=== PATIENT | female | born 1930 | race Caucasian/White ===

== ENCOUNTER 2017-01-03 16:37 | Inpatient (IN) | payer OTHER ==
[~2017-01-03] VITALS: Ht 152.4 cm; Wt 56.7 kg
[~2017-01-03 16:37] MED LIST: ALBUTEROL HHN; AMLO5TAB4; ASPI81TA2 PO; LIP20 PO
[2017-01-03 16:49] VITALS: BP_SYST 130
[2017-01-03] MEDS ORDERED: VANCOMYCIN HCL 1,000 MG in NS 250 ML IV ONE (18:30)
[2017-01-03] MEDS ORDERED: CEFAZOLIN 1 GM IVPB PREMIX 50 ML IV ONE (18:30)
[2017-01-03] MEDS ORDERED: VANCOMYCIN HCL 1000 MG/VIAL IV ONE ×2 (18:51→18:53)
[2017-01-03] MEDS ORDERED: FLUT1DIS3 INH (19:23)
[2017-01-03] MEDS ORDERED: ALBMDI INH (19:24)
[2017-01-03 19:33] LABS: BILIRUBIN,URINE NEGATIVE (NEGATIVE); BLOOD, URINE 1+ (NEGATIVE); CLARITY/URINE CLOUDY (CLEAR); COLOR,URINE YELLOW (YELLOW); GLUCOSE,URINE NEGATIVE (NEGATIVE); KETONES,URINE NEGATIVE (NEGATIVE); LEUKOCYTE ESTERASE ,URINE 2+ (NEGATIVE); NITRITE, URINE POSITIVE (NEGATIVE); PROTEIN URINE NEGATIVE (NEGATIVE)
[2017-01-03 19:42] LABS: BASOPHILS % (AUTO) 0.4 % (0.0-2.0); EOSINOPHILS # (AUTO) 0.7 K/uL (0.0-0.4); EOSINOPHILS % (AUTO) 10.1 % (0.0-4.0); HEMATOCRIT 34.9 % (36-48); HEMOGLOBIN 11.5 g/dL (12.0-16.0); LYMPHOCYTES # (AUTO) 1.1 K/uL (1.0-5.5); LYMPHOCYTES % (AUTO) 15.6 % (20.5-51.5); MEAN CORPUSCULAR HEMOGLOBIN 31 pg (27-31); MEAN CORPUSCULAR HGB CONC 33 % (32-36); MEAN CORPUSCULAR VOLUME 93 fL (79.0-98.0); MONOCYTES # (AUTO) 0.5 K/uL (0.0-1.0); MONOCYTES % (AUTO) 7.3 % (1.7-9.3); NEUTROPHILS # (AUTO) 4.6 K/uL (1.8-7.7); NEUTROPHILS % (AUTO) 66.6 % (40.0-70.0); PLATELET COUNT (AUTO) 331 K/uL (130-430); RED BLOOD CELL COUNT(AUTO) 3.75 MIL/uL (4.2-6.2); RED CELL DISTRIBUTION WIDTH 13.1 % (9.0-15.0); WHITE BLOOD COUNT (AUTO) 6.9 K/uL (4.8-10.8)
[2017-01-03 19:46] LABS: BACTERIA,URINE MANY /HPF (None Seen); MUCUS,URINE None Seen /LPF (None Seen); WBC,URINE 50-80 /HPF (0-3)
[2017-01-03] MEDS ORDERED: cefTRIAXone 1 GM IVPB PREMIX 50 ML IV ONE (20:00)
[2017-01-03 20:05] LABS: PROTHROMBIN TIME 10.6 SECS (9.5-12.5)
[2017-01-03 20:06] LABS: ALANINE AMINOTRANSFERASE 24 U/L (12-78); ALBUMIN 3.9 g/dL (3.4-4.8); ANION GAP 6 (5-15); ASPARTATE AMINOTRANSFERASE 23 U/L (10-37); CALCIUM 8.8 mg/dL (8.4-11.0); CHLORIDE 105 mmol/L (98-107); CREATININE 1.09 mg/dL (0.55-1.30); GLUCOSE 105 mg/dL (70-99); POTASSIUM 3.8 mmol/L (3.5-5.1); SODIUM SERUM 138 mmol/L (136-145); TOTAL BILIRUBIN 0.6 mg/dL (0.0-1.0)
[2017-01-03] MEDS ORDERED: ACETAMINOPHEN 325 MG TABLET PO PRN (20:30)
[2017-01-03 20:31] LABS: UREA NITROGEN, BLOOD 22 mg/dL (8-21)
[2017-01-03 22:00] VITALS: BP_SYST 143
[2017-01-03] MEDS: 0.45% NACL 1,000 ML IV SCH (23:18)
[2017-01-04] MEDS ORDERED: PIPERACILLIN/TAZOBACTAM 2.25 GM VIAL IV ONE (03:27)
[2017-01-04 03:59] VITALS: BP_SYST 141
[2017-01-04] MEDS: PIPERACILLIN/TAZO 2.25G/DEX-IS 50 ML IV SCH ×3 (05:03→17:39)
[2017-01-04] MEDS ORDERED: PIPERACILLIN/TAZO 4.5GM/DEX-IS 100 ML IV SCH (06:00)
[2017-01-04 08:00] VITALS: BP_SYST 133
[2017-01-04 08:19] LABS: BASOPHILS % (AUTO) 0.4 % (0.0-2.0); EOSINOPHILS # (AUTO) 0.8 K/uL (0.0-0.4); EOSINOPHILS % (AUTO) 12.2 % (0.0-4.0); HEMATOCRIT 33.1 % (36-48); HEMOGLOBIN 11.1 g/dL (12.0-16.0); LYMPHOCYTES # (AUTO) 0.9 K/uL (1.0-5.5); MEAN CORPUSCULAR HEMOGLOBIN 31 pg (27-31); MEAN CORPUSCULAR HGB CONC 34 % (32-36); MEAN CORPUSCULAR VOLUME 92 fL (79.0-98.0); MONOCYTES # (AUTO) 0.4 K/uL (0.0-1.0); MONOCYTES % (AUTO) 6.5 % (1.7-9.3); NEUTROPHILS # (AUTO) 4.2 K/uL (1.8-7.7); NEUTROPHILS % (AUTO) 66.9 % (40.0-70.0); PLATELET COUNT (AUTO) 298 K/uL (130-430); RED BLOOD CELL COUNT(AUTO) 3.59 MIL/uL (4.2-6.2); RED CELL DISTRIBUTION WIDTH 12.7 % (9.0-15.0); WHITE BLOOD COUNT (AUTO) 6.3 K/uL (4.8-10.8)
[2017-01-04] MEDS: ATORVASTATIN 20 MG TABLET PO SCH (08:27)
[2017-01-04] MEDS: ASPIRIN 81 MG TAB.CHEW PO SCH (08:27)
[2017-01-04] MEDS: amLODIPine BESYLATE 5 MG TABLET PO SCH (08:28)
[2017-01-04 08:30] LABS: ALANINE AMINOTRANSFERASE 20 U/L (12-78); ALBUMIN 3.3 g/dL (3.4-4.8); ANION GAP 6 (5-15); ASPARTATE AMINOTRANSFERASE 21 U/L (10-37); CALCIUM 8.6 mg/dL (8.4-11.0); CHLORIDE 105 mmol/L (98-107); CREATININE 0.86 mg/dL (0.55-1.30); GLUCOSE 101 mg/dL (70-99); SODIUM SERUM 138 mmol/L (136-145); TOTAL BILIRUBIN 1.1 mg/dL (0.0-1.0); UREA NITROGEN, BLOOD 12 mg/dL (8-21)
[2017-01-04] MEDS: ENOXAPARIN SODIUM 40 MG/0.4 ML SYRINGE SUBCUT SCH (09:53)
[2017-01-04 12:36] VITALS: BP_SYST 129
[2017-01-04 15:58] VITALS: BP_SYST 119
[2017-01-04] MEDS: 0.45% NACL 1,000 ML IV SCH (18:41)
[2017-01-04] MEDS: VANCOMYCIN HCL 750 MG in NS 250 ML IV SCH (19:45)
[2017-01-04 19:55] VITALS: BP_SYST 137
[2017-01-05] VITALS (7 sets, daily range): BP systolic 122–139
[2017-01-05] MEDS: PIPERACILLIN/TAZO 2.25G/DEX-IS 50 ML IV SCH ×5 (00:14→23:26)
[2017-01-05] MEDS: ASPIRIN 81 MG TAB.CHEW PO SCH (08:33)
[2017-01-05] MEDS: amLODIPine BESYLATE 5 MG TABLET PO SCH (08:33)
[2017-01-05] MEDS: ENOXAPARIN SODIUM 40 MG/0.4 ML SYRINGE SUBCUT SCH (08:33)
[2017-01-05] MEDS: ATORVASTATIN 20 MG TABLET PO SCH (08:33)
[2017-01-05] MEDS ORDERED: IPRATROPIUM/ALBUTEROL SULFATE 3 ML AMPUL.NEB INH PRN (10:30)
[2017-01-05] MEDS ORDERED: PERMETHRIN 60 GM TOPICAL CREAM (ELIMITE) TP ONE (13:15)
[2017-01-05] MEDS: 0.45% NACL 1,000 ML IV SCH (14:11)
[2017-01-05] MEDS: VANCOMYCIN HCL 750 MG in NS 250 ML IV SCH (20:22)
[2017-01-06 00:04] VITALS: BP_SYST 131
[2017-01-06 03:56] VITALS: BP_SYST 125
[2017-01-06] MEDS: PIPERACILLIN/TAZO 2.25G/DEX-IS 50 ML IV SCH (05:22)
[2017-01-06 06:46] LABS: HEMATOCRIT 32.1 % (36-48); HEMOGLOBIN 10.8 g/dL (12.0-16.0); MEAN CORPUSCULAR HEMOGLOBIN 31 pg (27-31); MEAN CORPUSCULAR HGB CONC 34 % (32-36); MEAN CORPUSCULAR VOLUME 92 fL (79.0-98.0); PLATELET COUNT (AUTO) 303 K/uL (130-430); RED BLOOD CELL COUNT(AUTO) 3.48 MIL/uL (4.2-6.2); RED CELL DISTRIBUTION WIDTH 13.1 % (9.0-15.0); WHITE BLOOD COUNT (AUTO) 5.2 K/uL (4.8-10.8)
[2017-01-06 07:00] LABS: ANION GAP 5 (5-15); CHLORIDE 106 mmol/L (98-107); CREATININE 0.96 mg/dL (0.55-1.30); GLUCOSE 112 mg/dL (70-99); POTASSIUM 3.5 mmol/L (3.5-5.1); SODIUM SERUM 138 mmol/L (136-145); UREA NITROGEN, BLOOD 8 mg/dL (8-21)
[2017-01-06 08:24] VITALS: BP_SYST 135
[2017-01-06 08:24] LABS: ATYPICAL LYMPHOCYTES % 0 % (0-0); BAND % (MANUAL) 0 % (0-6); BASOPHILS % (MANUAL) 0 % (0-2); EOSINOPHILS % (MANUAL) 13 % (0-7); LYMPHOCYTES % (MANUAL) 20 % (20-46); MONOCYTES % (MANUAL) 10 % (0-11)
[2017-01-06] MEDS: ATORVASTATIN 20 MG TABLET PO SCH (09:33)
[2017-01-06] MEDS: amLODIPine BESYLATE 5 MG TABLET PO SCH (09:33)
[2017-01-06] MEDS: ASPIRIN 81 MG TAB.CHEW PO SCH (09:33)
[2017-01-06] MEDS: ENOXAPARIN SODIUM 40 MG/0.4 ML SYRINGE SUBCUT SCH (09:33)
[2017-01-06] MEDS: DIPHENHYDRAMINE HCL 25 MG CAPSULE PO PRN ×2 (09:43→20:47)
[2017-01-06 11:33] VITALS: BP_SYST 119
[2017-01-06] MEDS: cefTRIAXone 1 GM in D5W 50 ML IV SCH (12:24)
[2017-01-06] MEDS: 0.45% NACL 1,000 ML IV SCH (14:13)
[2017-01-06 17:14] VITALS: BP_SYST 114
[2017-01-06 19:45] VITALS: BP_SYST 144
[2017-01-07 00:03] VITALS: BP_SYST 134
[2017-01-07] MEDS: 0.45% NACL 1,000 ML IV SCH (04:21)
[2017-01-07 04:47] VITALS: BP_SYST 130
[2017-01-07 07:02] LABS: BASOPHILS % (AUTO) 0.2 % (0.0-2.0); EOSINOPHILS # (AUTO) 0.7 K/uL (0.0-0.4); EOSINOPHILS % (AUTO) 14.5 % (0.0-4.0); HEMATOCRIT 31.8 % (36-48); HEMOGLOBIN 10.7 g/dL (12.0-16.0); LYMPHOCYTES % (AUTO) 20.2 % (20.5-51.5); MEAN CORPUSCULAR HEMOGLOBIN 31 pg (27-31); MEAN CORPUSCULAR HGB CONC 34 % (32-36); MEAN CORPUSCULAR VOLUME 94 fL (79.0-98.0); MONOCYTES # (AUTO) 0.5 K/uL (0.0-1.0); MONOCYTES % (AUTO) 8.9 % (1.7-9.3); NEUTROPHILS # (AUTO) 2.9 K/uL (1.8-7.7); NEUTROPHILS % (AUTO) 56.2 % (40.0-70.0); PLATELET COUNT (AUTO) 300 K/uL (130-430); RED BLOOD CELL COUNT(AUTO) 3.41 MIL/uL (4.2-6.2); RED CELL DISTRIBUTION WIDTH 12.9 % (9.0-15.0); WHITE BLOOD COUNT (AUTO) 5.1 K/uL (4.8-10.8)
[2017-01-07 07:18] LABS: ANION GAP 4 (5-15); CALCIUM 8.5 mg/dL (8.4-11.0); CHLORIDE 106 mmol/L (98-107); GLUCOSE 95 mg/dL (70-99); POTASSIUM 3.4 mmol/L (3.5-5.1); SODIUM SERUM 138 mmol/L (136-145); UREA NITROGEN, BLOOD 4 mg/dL (8-21)
[2017-01-07 08:00] VITALS: BP_SYST 125
[2017-01-07] MEDS: ATORVASTATIN 20 MG TABLET PO SCH (08:57)
[2017-01-07] MEDS: ASPIRIN 81 MG TAB.CHEW PO SCH (08:57)
[2017-01-07] MEDS: ENOXAPARIN SODIUM 40 MG/0.4 ML SYRINGE SUBCUT SCH (08:57)
[2017-01-07] MEDS: amLODIPine BESYLATE 5 MG TABLET PO SCH (08:57)
[2017-01-07] MEDS ORDERED: POTASSIUM CHLORIDE 10 MEQ TAB.PRT.SR PO ONE (10:15)
[2017-01-07 10:48] VITALS: BP_SYST 127
[2017-01-07] MEDS: cefTRIAXone 1 GM in D5W 50 ML IV SCH (11:12)
== END 2017-01-07 11:19 | disposition home or self-care (01) | DRG 603 ==
LOC: SED 16:37 → STU 20:24 → SMU 01-05 17:23
PROVIDERS: ADMIT Internal Medicine; ATTEND Internal Medicine
DX: L03.116 Cellulitis of left lower limb (principal); J44.9 Chronic obstructive pulmonary disease, unspecified; N39.0 Urinary tract infection, site not specified; B86 Scabies; B96.20 Unspecified Escherichia coli [E. coli] as the cause of diseases classified elsewhere; E78.5 Hyperlipidemia, unspecified; I10 Essential (primary) hypertension; Z86.73 Personal history of transient ischemic attack (TIA), and cerebral infarction without residual deficits; Z88.8 Allergy status to other drugs, medicaments and biological substances; Z87.891 Personal history of nicotine dependence; Z91.013 Allergy to seafood; Z79.899 Other long term (current) drug therapy; Z79.82 Long term (current) use of aspirin; Z98.42 Cataract extraction status, left eye; Z98.41 Cataract extraction status, right eye
CPT/HCPCS: 36415; 71010; 80048; 80053; 81000-TC; 83605; 83880; 84484; 85007; 85025; 85027; 85610-TC; 87040-TC; 87086; 87186-TC; 87210-TC; 93005; 93971; 96365; 96366; 96367; 99285; J0690; J0696; J1650; J2543; J3370; J7050; J7060; Q0163

== ENCOUNTER 2018-07-24 08:07 | Emergency (ER) | payer OTHER ==
[~2018-07-24] VITALS: Ht 152.4 cm; Wt 52.6 kg
[~2018-07-24 08:07] MED LIST changes: +ALBMDI INH; -ALBUTEROL HHN; +ASPI-1155 PO; -ASPI81TA2 PO; +FLUT1DIS3 INH
[2018-07-24 08:14] VITALS: BP_SYST 122
[2018-07-24] MEDS ORDERED: ALBUTEROL SULFATE 0.083% 2.5 MG/3 ML VIAL.NEB IH ONE ×2 (08:15→09:15)
[2018-07-24] MEDS ORDERED: methylPREDNISolone SOD SUCC/PF 62.5 MG/ML VIAL IVP ONE (08:15)
[2018-07-24] MEDS ORDERED: IPRATROPIUM BROM 0.5 MG/2.5 ML VIAL.NEB (ATROVENT) IH ONE ×2 (08:15→09:15)
[2018-07-24 08:52] LABS: ANION GAP 10 (5-15); CALCIUM 8.2 mg/dL (8.4-11.0); CHLORIDE 98 mmol/L (98-107); CREATININE 0.88 mg/dL (0.55-1.30); GLUCOSE 140 mg/dL (70-99); POTASSIUM 3.5 mmol/L (3.5-5.1); SODIUM SERUM 134 mmol/L (136-145); UREA NITROGEN, BLOOD 22 mg/dL (8-21)
[2018-07-24 08:57] LABS: ALANINE AMINOTRANSFERASE 31 U/L (12-78); ALBUMIN 3.2 g/dL (3.4-4.8); ASPARTATE AMINOTRANSFERASE 40 U/L (10-37); TOTAL BILIRUBIN 0.5 mg/dL (0.0-1.0)
[2018-07-24 09:02] LABS: WHITE BLOOD COUNT (AUTO) 5.7 K/uL (4.8-10.8)
[2018-07-24 09:03] LABS: BASOPHILS % (AUTO) 0.2 % (0.0-2.0); EOSINOPHILS % (AUTO) 0.6 % (0.0-4.0); HEMATOCRIT 34.7 % (36-48); HEMOGLOBIN 11.6 g/dL (12.0-16.0); LYMPHOCYTES # (AUTO) 0.3 K/uL (1.0-5.5); LYMPHOCYTES % (AUTO) 5.5 % (20.5-51.5); MEAN CORPUSCULAR HEMOGLOBIN 30 pg (27-31); MEAN CORPUSCULAR HGB CONC 33 % (32-36); MEAN CORPUSCULAR VOLUME 89 fL (79.0-98.0); MONOCYTES # (AUTO) 0.4 K/uL (0.0-1.0); MONOCYTES % (AUTO) 7.4 % (1.7-9.3); NEUTROPHILS # (AUTO) 4.9 K/uL (1.8-7.7); NEUTROPHILS % (AUTO) 86.3 % (40.0-70.0); PLATELET COUNT (AUTO) 255 K/uL (130-430); RED CELL DISTRIBUTION WIDTH 13.4 % (9.0-15.0)
[2018-07-24] MEDS ORDERED: NACL 0.9% 1,000 ML IV ONE (10:15)
[2018-07-24] MEDS ORDERED: DILTIAZEM HCL 120 MG CAP.SR.24H PO ONE (11:30)
[2018-07-24] MEDS ORDERED: DILTIAZEM HCL 60 MG TABLET ONE (11:42)
[2018-07-24 12:40] VITALS: BP_SYST 123
== END 2018-07-24 12:40 | disposition home or self-care (01) ==
LOC: SED 08:07
DX: J44.1 Chronic obstructive pulmonary disease with (acute) exacerbation (principal); R05 Cough; I10 Essential (primary) hypertension; Z86.79 Personal history of other diseases of the circulatory system; Z79.82 Long term (current) use of aspirin; Z79.899 Other long term (current) drug therapy; Z88.8 Allergy status to other drugs, medicaments and biological substances; Z91.012 Allergy to eggs
CPT/HCPCS: 36415; 80053; 85025; 94640; 96374; 99284; J2930; J7030; J7613; 93005